=== PATIENT | male | born 2000 | race Caucasian/White ===

== ENCOUNTER 2020-05-29 08:17 | Emergency (ER) | payer MEDICAID, SELFPAY ==
[2020-05-29 08:21] VITALS: BP 136/73; PULSE 100; RESP 14; TEMP 36.5; O2SAT 98
--- NOTE | 2020-05-29 08:30 | DI.RAD_ITS ---
EXAM: XR KNEE LT 3V AP,LAT,PORTIA CLINICAL HISTORY: Pain, r/o fracture. TECHNIQUE: 2D digital imaging was performed. COMPARISON: No exams were available for comparison FINDINGS: BONES: There is a 2 mm linear thin density medial to the medial femoral condyle this may represent a tiny avulsed fracture fragment. Correlation with patient's site of pain is recommended. No other f racture or dislocation is identified. Bones are normally mineralized. JOINTS: The knee is normally aligned. No joint effusion is seen. SOFT TISSUE: Normal. IMPRESSION: 2 mm linear density medial to the medial femoral condyle. This may represent a tiny avulsed fracture fragment. This is of indeterminate acuity. Please correlate with the patient's site of pain. No other evidence of an acute fracture or dislocation of the left knee. DATA REPOSITORY: RADIATION DOSE DELIVERED:
--- NOTE | 2020-05-29 08:54 | ED.GENADUL_ITS ---
Discharge Plan Disposition Patient Disposition: HOME Condition: Stable Discharge Details Chief Complaint: Orthopedic Clinical Impression: Closed fracture of left knee region Primary Care Provider: None,None ED Provider: Keya Jefferson Home Meds and New Rx's Prescriptions: No Action No Known Home Meds RF: 0 Discharge Instructions Instructions: Knee Sprain (ED), Swollen Knee Joint (ED) Additional Instructions: Use knee immobilizer and crutches for comfort. Be nonweightbearing as tolerated. Rest, ice, compression elevation. Follow-up with orthopedics in 1 to 2 weeks. Please take Tylenol or Ibuprofen with food every 4-6 hours as needed for pain and swelling. Follow up with primary care provider in 3-5 days. Return to ED sooner if any worsening or concerns. Increase oral fluids. Stand Alone Forms: Work Release Referrals: Rashaun Huang MD [ [facility] STAFF PHYSICIAN] - Medical Decision Making 27-year-old male presents to the ER with chief complaint of left knee pain which occurred approximately 3 days ago. Patient states he was wrestling with another person and the other person was leaning on his knee and there was a twisting type injury. He does have some healing contusion noted to the medial aspect of the joint, tenderness with palpation to this area. No obvious deformity or swelling noted. No hip pain, no ankle pain or any other injuries. He reports increased pain with weightbearing and inability to weight-bear. No history of previous injuries to the knee or surgeries to this knee. X-ray three-view left knee ordered. Patient is requesting crutches and a work note. Discussed follow-up with Ortho which patient is reluctant to do so because he is self-pay. EXAM: XR KNEE LT 3V AP,LAT,PORTIA CLINICAL HISTORY: Pain, r/o fracture. TECHNIQUE: 2D digital imaging was performed. COMPARISON: No exams were available for comparison FINDINGS: BONES: There is a 2 mm linear thin density medial to the medial femoral condyle this may represent a tiny avulsed fracture fragment. Correlation with patient's site of pain is recommended. No other fracture or dislocation is identified. Bones are normally mineralized. JOINTS: The knee is normally aligned. No joint effusion is seen. SOFT TISSUE: Normal. IMPRESSION: 2 mm linear density medial to the medial femoral condyle. This may represent a tiny avulsed fracture fragment. This is of indeterminate acuity. Please correlate with the patient's site of pain. No other evidence of an acute fracture or dislocation of the left knee Patient placed in a knee immobilizer and given crutches and demonstrated use prior to discharge. Placed on the orthopedic follow-up list. Discussed home care, verbalized understanding. HPI General Mode of arrival: wheelchair . Date/Time Provider Initiated Documentation: 05/29/20 08:34 . Limitations to Documentation: no limitations . Information obtained by: patient . HPI Narrative: 27-year-old male presents to the ER with chief complaint of left knee pain which occurred approximately 3 days ago. Patient states he was wrestling with another person and the other person was leaning on his knee and there was a twisting type injury. He does have some healing contusion noted to the medial aspect of the joint, tenderness with palpation to this area. No obvious deformity or swelling noted. No hip pain, no ankle pain or any other injuries. He reports increased pain with weightbearing and inability to weight-bear. No history of previous injuries to the knee or surgeries to this knee. Related Data Home Medications Medication Instructions Recorded Confirmed Unknown [No Known Home Meds] 05/29/20 05/29/20 Allergies Allergy/AdvReac Type Severity Reaction Status Date / Time No Known Allergies Allergy Unverified 05/29/20 08:26 General Stated Complaint: Orthopedic RADAMES: 4 Review of Systems Constitutional Constitutional: Reports as per HPI Cardiovascular Cardiovascular: Reports system reviewed and no additional complaints, except as documented Respiratory Respiratory: Reports system reviewed and no additional complaints, except as documented Musculoskeletal Musculoskeletal: Reports arthralgias (Left knee) and Reports limited range of motion (Decreased straightening of the knee.) [facility] Social History Smoking/Tobacco Use Status: Current every day Tobacco Type: cigarettes Alcohol Intake: current Substance use type: does not use Do you feel safe at home: Yes Exam Narrative Exam Narrative: Constitutional: Alert and oriented x3. Appears stated age. Normal body habitus. Musculoskeletal: Normal gait, 5/5 strength to all four extremities. Decreased extension of left knee, no fluid wave, tenderness palpation to the medial joint space. No obvious deformity. Distal pulses intact. Distal CMS is intact. Skin: No suspicious rashes or lesions. Capillary refill less than 2 sec. Neurologic: Cranial nerves II-XII intact. Alert and oriented x 3. DTR's intact. Hematologic/Lymphatic: Mild healing contusions noted to the medial aspect of left knee no lymphadenopathy. Course Vital Signs Vital signs: Vital Signs Temperature 36.5 C 05/29/20 08:21 Pulse 100 H 05/29/20 08:21 Respiratory Rate 14 05/29/20 08:21 Blood Pressure 136/73 05/29/20 08:21 Pulse Oximetry 98 05/29/20 08:21 Temperature 36.5 C 05/29/20 08:21 Temperature Source Skin 05/29/20 08:21 Pulse 100 H 05/29/20 08:21 Respiratory Rate 14 05/29/20 08:21 Respiratory Effort 05/29/20 08:25 Blood Pressure 136/73 05/29/20 08:21 Blood Pressure Position Sitting 05/29/20 08:21 Pulse Oximetry 98 05/29/20 08:21 Oxygen Delivery Method Room Air 05/29/20 08:21 Oxygen Flow Rate 0 05/29/20 08:21 Pain Level 10 05/29/20 08:25 Comment 05/29/20 08:21
== END 2020-05-29 09:35 | disposition home or self-care (01) ==
LOC: ER 09:39
PROVIDERS: Emergency Provider Registered Nurse Emergency
DX: R93.6 Abnormal findings on diagnostic imaging of limbs (principal); S72.432A Displaced fracture of medial condyle of left femur, initial encounter for closed fracture; X50.9XXA Other and unspecified overexertion or strenuous movements or postures, initial encounter; Y93.83 Activity, rough housing and horseplay
CPT/HCPCS: 27508; 73562; E0114; L1830; L3650